=== PATIENT | female | born 1995 | race Caucasian/White ===

== ENCOUNTER 2017-10-14 11:40 | Emergency (ER) | payer OTHER, BC ==
[~2017-10-14] VITALS: Ht 170.2 cm; Wt 75.0 kg
[~2017-10-14 11:40] MED LIST: PROZ20CA11 PO; iud
[2017-10-14 11:43] VITALS: BP 142/92; PULSE 67; RESP 18; TEMP 98.6; O2SAT 100
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
--- NOTE | 2017-10-14 12:54 | RADRPT ---
EXAM DATE/TIME: 10/14/2017 12:12 [facility] COMPARISON: No previous studies available for comparison. INDICATIONS : Shortness of breath. MEDICAL HISTORY : None. SURGICAL HISTORY : None. ENCOUNTER: Initial ACUITY: 1 day PAIN SCORE: 0/10 LOCATION: Bilateral chest FINDINGS: Single AP view of the chest. The lungs are clear. Cardiomediastinal silhouette within normal limits. No evidence of pleural effusion or pneumothorax. CONCLUSION: No acute cardiopulmonary disease identified. Hernan Atkinson MD on October 14, 2017 at 12:51 Board Certified Radiologist. This report was verified electronically.
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
[2017-10-14] MEDS ORDERED: DICL75TA PO (14:01)
[2017-10-14] MEDS ORDERED: BACL10TA PO (14:01)
== END 2017-10-14 14:25 | disposition home or self-care (01) ==
LOC: NEPD 11:40
DX: S16.1XXA Strain of muscle, fascia and tendon at neck level, initial encounter (principal); S50.12XA Contusion of left forearm, initial encounter; S20.219A Contusion of unspecified front wall of thorax, initial encounter; V89.2XXA Person injured in unspecified motor-vehicle accident, traffic, initial encounter
CPT/HCPCS: 71045; 72125; 73110; 84703; 99285